=== PATIENT | female | born 1990 | race Caucasian/White ===

== ENCOUNTER → 2019-02-21 | Outpatient (CLI) | payer BC ==
[~2019-02-21] VITALS: Ht 167.6 cm; Wt 88.5 kg
[~2019-02-21] MED LIST: ABILIFY5 MG PO; ADDERALL15 MG PO; AMOXICILLIN 50500 MG PO; BCP TD; BENADRYL 1%-0.11 CRE TP; CEPHALEXIN500 M1 PO; CLARITIN 1010 MG/TAB PO; CLEOCIN HC150 MG/CAP PO; INDERAL40 MG PO; LAMICTAL 100MG100 MG PO; LEXAPRO20 MG PO; LORTAB 5/500 501 TAB PO; MELATONIN5 M1 SL; PREDNISONE20 MG PO; SINGULAIR 110 MG/TAB PO; ZYRTEC 10MG10 MG PO
[2019-02-21 08:19] VITALS: BP 106/66; PULSE 60
== END ==
LOC: LIGHT
DX: E11.9 Type 2 diabetes mellitus without complications (principal); E78.5 Hyperlipidemia, unspecified; I10 Essential (primary) hypertension
CPT/HCPCS: G0463

== ENCOUNTER → 2019-03-06 | Outpatient (CLI) | payer BC | LOC: LIGHT 10:39 | DX: F32.9 Major depressive disorder, single episode, unspecified (principal); E28.2 Polycystic ovarian syndrome; F50.81 Binge eating disorder; E66.9 Obesity, unspecified; Z68.31 Body mass index [BMI] 31.0-31.9, adult; Z71.3 Dietary counseling and surveillance ==

== ENCOUNTER → 2019-03-08 | Outpatient (CLI) | payer BC ==
[~2019-03-08] VITALS: Ht 167.6 cm; Wt 87.8 kg
[2019-03-08 09:43] VITALS: BP 100/62; PULSE 72
== END ==
LOC: LIGHT 09:35
DX: E28.2 Polycystic ovarian syndrome (principal); F32.9 Major depressive disorder, single episode, unspecified; F50.81 Binge eating disorder; E66.9 Obesity, unspecified; Z68.31 Body mass index [BMI] 31.0-31.9, adult; Z71.3 Dietary counseling and surveillance
CPT/HCPCS: G0463

== ENCOUNTER → 2019-03-14 | Outpatient (CLI) | payer BC | LOC: LIGHT 08:58 | DX: E28.2 Polycystic ovarian syndrome (principal); F32.9 Major depressive disorder, single episode, unspecified; F50.81 Binge eating disorder; E66.9 Obesity, unspecified; Z68.31 Body mass index [BMI] 31.0-31.9, adult; Z71.3 Dietary counseling and surveillance ==